=== PATIENT | female | born 1980 | race Caucasian/White ===

== ENCOUNTER 2019-05-22 14:43 | Emergency (ER) | payer MEDICAID ==
[~2019-05-22] VITALS: Ht 154.9 cm; Wt 39.0 kg
[2019-05-22 14:49] VITALS: BP 151/92
== END 2019-05-22 17:45 | disposition home or self-care (01) ==
LOC: ER 14:46
DX: J06.9 Acute upper respiratory infection, unspecified (principal)
CPT/HCPCS: 71045; 99283